=== PATIENT | female | born 1945 | race Asian ===

== ENCOUNTER → 2018-01-05 | Outpatient (CLI) | payer OTHER | END | disposition home or self-care (01) | LOC: SMI 07:14 | PROVIDERS: ATTEND Psychiatry & Neurology Neurology | DX: M50.321 Other cervical disc degeneration at C4-C5 level (principal); M46.02 Spinal enthesopathy, cervical region; M47.892 Other spondylosis, cervical region | CPT/HCPCS: 72141 ==